=== PATIENT | female | born 1990 | race Hispanic/Latino ===

== ENCOUNTER 2024-10-25 12:49 | Emergency (ER) | payer BC, MEDICAID ==
[~2024-10-25] VITALS: Ht 167.6 cm; Wt 90.7 kg
[~2024-10-25 12:49] MED LIST: CEPH500B PO; IBUP-1493 PO
--- NOTE | 2024-10-25 13:08 | ERN ---
ED Note History of Present Illness Stated Complaint: STD TESTING Chief Complaint: Sexually Transmitted Disease Time Seen by MD: 12:50 Time Seen by Midlevel: 12:58 Dictation: 34 Year old female coming in with concerns of STD exposure. Patient states co uple of days ago she was tested on urgent care for chlamydia however states she had intercourse again with the person who might have chlamydia and wanted to make sure that is out was all right. Patient states it when she was seen at the urgent care she received an injection and pills for possible STD exposure. At this time patient has no complaints Allergies: Coded Allergies: No Known Drug Allergies (Unverified Allergy, Unknown, 11/01/15) Home Meds Reported Medications Cephalexin Monohydrate (Keflex) 500 Mg Cap, 500 MG PO TID PRN for AD for 5 Days, CAP 11/02/15 Ibuprofen (Motrin/Advil) 800 Mg Tab, 800 MG PO Q8H PRN for PAIN, #30 TAB 11/02/15 Review of System Dictation Constitutional: Negative for fever,chills, and weight loss Eyes: Negative for injury, pain,redness, and discharge ENT: Negative for injury,pain or swelling Cardiovascular: Negative for chest pain, palpitations, and edema Respiratory: Negative for shortness of breath, cough, and wheezing, Abdomen/GI: Negative for abdominal pain, nausea, vomiting, diarrhea, and const ipation Back: Negative for injury and pain : Negative for injury, bleeding and discharge MS/Extremity: Negative for injury and deformity Skin: Negative for rash, and discoloration Neuro: Negative for headache, weakness, numbness, tingling, and seizure Psych: Negative for suicide ideation, homicidal ideation, and hallucinations Review of Systems: was completed Physical Exam Dictation General: awake, alert, NAD Head/Face: Normocephalic, atraumatic Eyes: PERRL, EOMI, vision at baseline ENT: oral cavity clear, TMs clear, no signs of infection Neck: Trachea midline, supple, no nuchal rigidity Cardiovascular: RRR, normal S1/S2, No MRGs, no JVD Respiratory: CTAB, no respiratory distress, No rales or wheezes Abdomen: Soft, non-tender, non-distended, normal bowel sounds, no guarding or rebound. Skin: Warm, dry, normal turgor, no rash MS/Extremity: Pulses equal, no cyanosis, neurovascular intact, FROM Neuro: COAx4, GCS 15, strength 5/5, CN 2-12 intact, normal cerebellar exam, normal gait, Psych: Normal behavior, mood, and affect normal Medical Decision Making MDM MDM:34 Year old female coming in with concerns of STD exposure. Patient states couple of days ago she was tested on urgent care for chlamydia however states she had intercourse again with the person who might have chlamydia and wanted to make sure that is out was all right. Patient states it when she was seen at the urgent care she received an injection and pills for possible STD exposure. At this time patient has no complaints. Discussed with the patient that medication she received covers a variety of STDs however she develops any other symptoms she needs to follow up with PCP for further evaluation. And discussed not to have any sexual intercourse with any other individuals to prevent any further spread of possible STD. Differential diagnosis: STD exposure Rationale: Tests considered and ordered secondary to shared decision making include: Previous outside records reviewed: Old ER visits. Risk of complication and/or morbidity or mortality of patient management: None Medications-Per medication reconciliation Need for hospitalization: Patient does not meet criteria for hospitalization. Need for emergency major/minor surgery: No There are no social concerns with this patient. Prescription drug management Prescriptions will include symptomatic care Patient's prior external medical records from other ER visits were reviewed by me as indicated. Prior testing and results from previous visits were reviewed. Prior tests were taken into account with medical decision making and resource utilization, independent historian/historians were used to obtain complete medical history. I independently interpreted the test that were performed, results were reviewed by me and considered findings on radiology if ordered. Medical management and examination interpretation discussions were had by me with other qualified healthcare professionals as indicated for the patient's care. DX & DISP Disposition: Discharge Departure Impression: Primary Impression: Adult wellness visit Condition: Stable Additional Instructions: Do not have any sexual intercourse with a any other individual to prevent the spread of possible STD, follow up with PCP if you develop any symptoms. Referrals: SELF,REFERRAL (PCP) Time of Disposition: 13:07 I have reviewed the case, and I agree with, Diagnosis and Plan DAT PETER NP Oct 25, 2024 13:08
[2024-10-25 13:35] VITALS: BP 130/80; PULSE 85; RESP 16; TEMP 98.1; O2SAT 98
== END 2024-10-25 13:49 | disposition home or self-care (01) ==
LOC: EDH 12:49
DX: Z04.89 Encounter for examination and observation for other specified reasons (principal); Z11.3 Encounter for screening for infections with a predominantly sexual mode of transmission; Z79.899 Other long term (current) drug therapy
CPT/HCPCS: 99281